=== PATIENT | male | born 1995 | race Caucasian/White ===

== ENCOUNTER 2019-03-11 12:35 | Emergency (ER) | payer OTHER | END 2019-03-11 13:18 | disposition home or self-care (01) | LOC: FTE 13:18 | DX: R09.89 Other specified symptoms and signs involving the circulatory and respiratory systems (principal); F41.9 Anxiety disorder, unspecified | CPT/HCPCS: 99283 ==

== ENCOUNTER 2019-06-12 03:14 | Emergency (ER) | payer OTHER ==
[2019-06-12] MEDS ORDERED: CA GLUCONATE (GM) 10% 10ML INJ (09:06)
== END 2019-06-12 04:28 | disposition home or self-care (01) ==
LOC: FTE 04:28
DX: M94.0 Chondrocostal junction syndrome [Tietze] (principal); K04.7 Periapical abscess without sinus
CPT/HCPCS: 99283; J0610